=== PATIENT | female | born 1985 ===

== ENCOUNTER 2017-07-23 19:34 | Emergency (ER) | payer OTHER ==
[2017-07-23 20:14] LABS: SQUAMOUS EPITHIAL 5 /hpf (0-5); URINE BILIRUBIN NEGATIVE (NEGATIVE); URINE BLOOD 2+ (NEGATIVE); URINE CLARITY Hazy (Clear); URINE COLOR Yellow (YELLOW); URINE GLUCOSE (UA) NORMAL (Normal); URINE LEUKOCYTE ESTERASE TRACE Leu/uL (Negative); URINE PROTEIN NEGATIVE (NEGATIVE); URINE UROBILINOGEN NORMAL mg/dL (0.2-1.0)
[2017-07-23] MEDS ORDERED: Sodium Chloride 0.9% 1,000 ML IV ONE (20:14)
--- NOTE | 2017-07-23 20:14 | C.PDOC ---
History Of Present Illness 31 yr old female presents to the ER presents to the ER with complaints of abdominal pain starting at 3pm today. Patient states the pain started after eating a turkey cheese sandwich [place] [employer]. Patient describes the pain as intermittent sharp and cramping severe abdominal pain. Denies vomiting, diarrhea or dysuria. Time Seen by Provider: 07/23/17 20:14 Chief Complaint (Nursing): Abdominal Pain History Per: Patient History/Exam Limitations: no limitations Onset/Duration Of Symptoms: Sudden Onset (around 3pm) Current Symptoms Are (Timing): Still Present Quality Of Discomfort: Sharp, Cramping Past Medical History Reviewed: Historical Data, Nursing Documentation, Vital Signs Vital Signs: Last Vital Signs Temp 98.3 F 07/23/17 21:07 Pulse 79 07/23/17 21:07 Resp 18 07/23/17 21:07 BP 106/61 07/23/17 21:07 Pulse Ox 100 07/23/17 22:30 Family History: States: No Known Family Hx - Social History Hx Alcohol Use: No Hx Substance Use: No - Immunization History Hx Tetanus Toxoid Vaccination: No Hx Influenza Vaccination: No Hx Pneumococcal Vaccination: No Review Of Systems Except As Marked, All Systems Reviewed And Found Negative. Cardiovascular: Negative for: Chest Pain Respiratory: Negative for: Shortness of Breath Gastrointestinal: Positive for: Abdominal Pain. Negative for: Vomiting, Diarrhea Genitourinary: Negative for: Dysuria Neurological: Negative for: Weakness Psych: Negative for: Anxiety Physical Exam - Physical Exam Appears: Non-toxic, No Acute Distress Skin: Warm, Dry Eye(s): bilateral: Normal Inspection Oral Mucosa: Moist Neck: Supple Chest: Symmetrical Cardiovascular: No Murmur Respiratory: No Rales, No Rhonchi, No Stridor, No Wheezing Gastrointestinal/Abdominal: Soft, Tenderness (diffuse tenderness to palpation), No Guarding, No Rebound Extremity: Normal ROM Extremity: Bilateral: Atraumatic Neurological/Psych: Oriented x3, Normal Speech Gait: Steady ED Course And Treatment - Laboratory Results Result Diagrams: 07/23/17 20:28 07/23/17 20:28 O2 Sat by Pulse Oximetry: 100 (RA) Pulse Ox Interpretation: Normal - CT Scan/US CT - Abd & Pelvis Other Rad Studies (CT/US): Read By Radiologist Medical Decision Making Medical Decision Making: PLAN: * CT - Abd & Pelvis * Labs * HCG * Urinalysis * Pepcid IVP * Toradol IVP * Zofran IVP * Sodium Chloride IV Disposition Counseled Patient/Family Regarding: Studies Performed, Diagnosis, Need For Followup, Rx Given - Disposition Referrals: Luis Mann MD, PhD [Staff Provider] - Disposition: HOME/ ROUTINE Disposition Time: 20:14 Condition: FAIR Additional Instructions: Please return if symptoms recur Prescriptions: Ibuprofen [Motrin Tab] 800 mg PO TID PRN #15 tab PRN Reason: Pain, Moderate (4-7) Pantoprazole Sodium [Protonix] 40 mg PO DAILY #15 ect Instructions: Colic (DC), Gallstones (DC) Forms: Teralynk (Lao) - Clinical Impression Clinical Impression: Abdominal pain, Gallstones - Scribe Statement The provider has reviewed the documentation as recorded by the Ana Mcfarland Provider Attestation: All medical record entries made by the Shaheenibe were at my direction and personally dictated by me. I have reviewed the chart and agree that the record accurately reflects my personal performance of the history, physical exam, medical decision making, and the department course for this patient. I have also personally directed, reviewed, and agree with the discharge instructions and disposition.
[2017-07-23 20:17] LABS: HCG,QUALITATIVE URINE NEGATIVE (NEGATIVE)
[2017-07-23] MEDS ORDERED: Sodium Chloride 0.9% 1,000 ML ONE (20:29)
[2017-07-23 20:35] LABS: BASO # 0.1 K/uL (0.0-0.2); BASO % 0.7 % (0.0-2.0); EOS # 0.4 K/uL (0.0-0.7); EOS % 4.5 % (0.0-4.0); HEMOGLOBIN 13.1 g/dL (11.0-16.0); LYMPH # 2.4 K/uL (1.0-4.3); LYMPH % 27.4 % (20.0-40.0); MEAN CELL VOLUME 81.8 fL (81.0-99.0); MEAN CORPUSCULAR HEMOGLOBIN 28.2 pg (27.0-31.0); MEAN CORPUSCULAR HGB CONC 34.4 g/dL (33.0-37.0); MEAN PLATELET VOLUME 8.4 fL (7.2-11.7); MONO # 0.6 K/uL (0.0-0.8); MONO % 6.8 % (0.0-10.0); NEUT # 5.4 K/uL (1.8-7.0); NEUT % 60.6 % (50.0-75.0); NRBC % 0.1 % (0.0-2.0); RBC 4.63 Mil/uL (3.80-5.20); RED CELL DISTRIBUTION WIDTH 13.5 % (11.5-14.5); WHITE BLOOD COUNT 8.9 K/uL (4.8-10.8)
[2017-07-23 20:44] LABS: INR 1.1; PROTHROMBIN TIME 11.8 SECONDS (9.7-12.2)
[2017-07-23 20:49] LABS: ALB/GLOB RATIO 1.1 (1.0-2.1); ALBUMIN 4.3 g/dL (3.5-5.0); CALCIUM 8.9 mg/dl (8.6-10.4); GFR AFRICAN-AMERICAN > 60; GFR NON-AFRICAN AMERICAN > 60; LIPASE 72 U/L (23-300)
[2017-07-23 20:55] LABS: ALT/SGPT 46 U/L (9-52); AST/SGOT 38 U/L (14-36); BLOOD UREA NITROGEN 12 mg/dL (7-17)
[2017-07-23] MEDS ORDERED: Morphine 4 MG/ML VIAL ONE (21:00)
[2017-07-23 21:08] VITALS: RESP 18
[2017-07-23] MEDS ORDERED: Iohexol 300 100 ML IJ ONE (21:09)
--- NOTE | 2017-07-23 22:15 | CT ---
EXAM: CT Abdomen and Pelvis With Intravenous Contrast EXAM DATE/TIME: 07/23/2017 8:19 PM CLINICAL HISTORY: 31 years old, female; Pain; Abdominal pain; Periumbilical; Additional info: Abd pain, n/v TECHNIQUE: Axial computed tomography images of the abdomen and pelvis with intravenous contrast. All CT scans at this facility use one or more dose reduction techniques, viz.: automated exposure control; ma/kV adjustment per patient size (including targeted exams where dose is matched to indication; i.e. head); or iterative reconstruction technique. Coronal and sagittal reformatted images were created and reviewed. CONTRAST: 100 mL of omnipaque 300 administered intravenously. COMPARISON: There are no prior studies for comparison. FINDINGS: Lower thorax: Heart size is normal. There is minimal atelectasis/scarring at the lung bases. ABDOMEN: Liver: There is fatty infiltration of the liver. Gallbladder and bile ducts: Gallbladder fossa is distended, approximately 10 cm in length. There are multiple stones.Common duct is unremarkable. Pancreas: unremarkable Spleen: unremarkable Adrenals: unremarkable Kidneys and ureters: unremarkable Stomach and bowel: Stomach is partially distended. Rotation is normal. Proximal small bowel is mildly distended with fluid and air. There is no obstruction. Ileocecal region is unremarkable. Terminal ileum is unremarkable. Appendix is normal in size. There are multiple small nonobstructing fecaliths in the appendix. Colon is incompletely distended which limits evaluation. Appendix: See stomach and bowel PELVIS: Bladder: unremarkable Reproductive: Uterus and adnexal structures are unremarkable.There is a nabothian cyst in the cervix. ABDOMEN and PELVIS: Intraperitoneal space: There is no free air or free fluid. Bones/joints: There are no acute osseous abnormalities. Soft tissues: unremarkable Vasculature: Vascular structures are unremarkable. Lymph nodes: There is shotty mesenteric adenopathy IMPRESSION: Distended gallbladder with multiple stones, no ductal dilatation; no acute solid visceral abnormality; mild ileus, no obstruction; no CT findings of appendicitis Additional nonemergent findings as described above.
[2017-07-23 22:31] VITALS: O2SAT 100
[2017-07-23 22:39] VITALS: BP 122/73; PULSE 74; TEMP 98.1
== END 2017-07-23 22:48 | disposition home or self-care (01) ==
LOC: C.ER 19:34
DX: K80.20 Calculus of gallbladder without cholecystitis without obstruction (principal); R10.9 Unspecified abdominal pain
CPT/HCPCS: 74177; 80053; 81001; 83690; 84703; 85025; 85610; 85730; 96361; 96374; 96375; 99285; J1885; J2270; J2405; J7040; Q9967

== ENCOUNTER 2017-08-06 08:48 | Day surgery (SDC) | payer OTHER ==
[2017-07-31 14:30] VITALS: BMI 29.4
[2017-08-06] MEDS ORDERED: Iohexol 240 (50 ml) ONE ×2 (10:30→11:55)
[2017-08-06] MEDS ORDERED: ceFAZolin IV 1 gm in Dextrose 2 GM/100 ML BAG IVPB ONE (10:30)
[2017-08-06] MEDS ORDERED: Lactated Ringer's 1,000 ML IV ONE ×2 (10:45→12:00)
[2017-08-06] MEDS ORDERED: Midazolam 2 MG/2 ML VIAL ONE (10:50)
[2017-08-06] MEDS ORDERED: Propofol 10 mg/ml Inj (20 ML) ONE (10:50)
[2017-08-06] MEDS ORDERED: Rocuronium 10 mg/ml (5 ml) ONE (12:58)
[2017-08-06] MEDS ORDERED: Succinylcholine Chloride 20 mg/ml Syr (5 ml) IV ONE (12:58)
--- NOTE | 2017-08-06 13:05 | PCM.SURG1 ---
Surgeon's Initial Post Op Note - Surgeon's Notes Surgeon: Dr. Garcia [employer] Hat Blocker: Dr. Arreola, PGY-3 Type of Anesthesia: General Endo Anesthesia Administered By: Dr. Marquez Pre-Operative Diagnosis: Chronic Cholelithiasis Operative Findings: See operative report Post-Operative Diagnosis: Same Operation Performed: Laparoscopic Cholecystectomy with IOC Specimen/Specimens Removed: Gallbladder Estimated Blood Loss: EBL {In ML}: 25 Blood Products Given: N/A Drains Used: No Drains Post-Op Condition: Good Date of Surgery/Procedure: 08/06/17 Time of Surgery/Procedure: 13:05
[2017-08-06] MEDS ORDERED: Oxycodone/Acetaminophen 5/325 mg Tab PO PRN (13:07)
[2017-08-06] MEDS: HYDROmorphone 0.5 mg/0.5 ml ISec IVP PRN ×2 (13:16→13:56)
[2017-08-06] MEDS ORDERED: HYDROmorphone 0.5 mg/0.5 ml ISec ONE (13:16)
--- NOTE | 2017-08-06 13:56 | RAD ---
PROCEDURE: Intraoperative Fluoroscopy. HISTORY: CHOLECYSTITIS FINDINGS: Fluoroscopic assistance was provided for intraoperative cholangiogram.. Please refer to the operative report from WENCESLAO Lopez. Total fluoroscopic time (continuous mode) utilized during the procedure: 62.2 seconds.Total exam DLP: (mGy) 10.25.
[2017-08-06 15:50] VITALS: RESP 16
[2017-08-06 17:48] VITALS: BP 110/67; PULSE 72; TEMP 97.4; O2SAT 100
--- NOTE | 2017-08-07 00:37 | OP ---
PROCEDURE DATE: 08/06/2017. PREOPERATIVE DIAGNOSES: Cholecystitis, cholelithiasis. POSTOPERATIVE DIAGNOSES: Cholecystitis, cholelithiasis. PROCEDURES CARRIED OUT: Laparoscopic cholecystectomy with C-arm cholangiogram and liver biopsy. SURGEON: Matt Garcia Jr., MD. AIRCREWMAN: Dr. Arreola. ANESTHESIA: General. ANESTHESIOLOGIST: Susan Roman CRNA. INDICATIONS: The patient is a young woman with abdominal pain, found to have gall stones. OPERATIVE FINDINGS: 1. Cholangiogram carried out to the cystic duct, free flow into the duodenum, good visualization of hepatic radicles, no evidence of retained stones or strictures. 2. In the right lobe of the liver undersurface, there was an irregular area of yellow discoloration, not particularly well circumscribed but irregular; because of this, we carried out needle biopsies of this. After this had been done, there was no significant bleeding from liver surface and we cauterized this well. The rest of the intraoperative findings were unremarkable. There were no other abnormalities detected. DESCRIPTION OF PROCEDURE: The patient was given general anesthesia and intravenous antibiotics. Venodyne boots were applied. Ajit trocar was inserted to the umbilicus and then two additional 5 mm trocars were placed. The cystic duct and cystic artery were identified and view of safety was obtained. After this had been done, the cystic duct was clipped and a cholangiogram carried out with the above mentioned findings. We then clipped the cystic artery. After this had been done, we then removed the gallbladder from the liver bed and brought it out through the umbilicus in a port. We then did a liver biopsy. We have checked again for hemostasis and irrigating fluids, there were none and this was a very good dry abdomen prior to closure. We then used a closure device on the umbilicus and terminated the procedure. Blood loss was less than 25 mL. Operations laparoscopic cholecystectomy with C-arm cholangiogram and liver biopsy. Matt Garcia Jr., MD cc:
== END 2017-08-06 17:01 | disposition home or self-care (01) ==
LOC: C.SDS 08:48
PROVIDERS: ATTEND Surgery Vascular Surgery
DX: K80.10 Calculus of gallbladder with chronic cholecystitis without obstruction (principal)
CPT/HCPCS: 47000; 47563; 88304; 88307; 88313; J0690; J1170; J1885; J2001; J2250; J2405; J2704; J2765; J3010; J7040; J7120